=== PATIENT | male | born 1945 | race Caucasian/White ===

== ENCOUNTER 2017-10-16 13:42 | Inpatient (IN) | payer OTHER, MEDICARE ==
[~2017-10-16] VITALS: Ht 167.6 cm; Wt 97.4 kg
[2017-10-16 14:32] LABS: APPEARANCE CLEAR ((CLEAR)); BILIRUBIN NEGATIVE; BLOOD NEGATIVE; COLOR YELLOW ((YELLOW)); GLUCOSE (STRIP) NEGATIVE; KETONES NEGATIVE; LEUKOCYTES NEGATIVE; NITRITE NEGATIVE; PROTEIN (STRIP) NEGATIVE; SPECIFIC GRAVITY 1.017 (1.000-1.030); UCUL ADDED? NO; UROBILINOGEN 0.2 MG/DL (0.2-1.0)
[2017-10-16 14:50] LABS: HEMATOCRIT 35.9 % (38.0-50.0); HEMOGLOBIN 12.2 G/DL (12.5-16.6); MCH 28.1 PG (29.0-34.0); MCV 82.7 FL (86-99); PLATELET COUNT 221 K/uL (156-360); RBC DIS.WIDTH-CV 14.5 % (11.8-14.6); RBC DIS.WIDTH-SD 43.5 % (39-53); RED BLOOD COUNT 4.34 M/uL (4.00-5.50); WHITE BLOOD COUNT 7.2 K/uL (4.1-10.2)
[2017-10-16 15:37] LABS: CHLORIDE 103 MEQ/L (99-109); POTASSIUM 4.9 MEQ/L (3.7-5.4); SODIUM 134 MEQ/L (136-147)
[2017-10-16 15:43] LABS: CREATININE 2.9 MG/DL (0.6-1.3); GFR ESTIMATE (CALCULATED) 23 mL/min/ (58.99-99999); GLUCOSE 106 mg/dL (70-99); UREA NITROGEN (BUN) 60 mg/dL (9-23)
[2017-10-16] MEDS ORDERED: LO-DOSE ASPIRIN81 M1 PO (20:53)
[2017-10-16] MEDS ORDERED: MOVE FREE JOIN1 EACH PO (20:53)
[2017-10-16] MEDS ORDERED: MOVE FREE ULTR1 EAC1 PO (20:53)
[2017-10-16] MEDS ORDERED: ZESTORETIC 20-1 EAC2 PO (20:53)
[2017-10-16] MEDS ORDERED: ALEVE220 MG PO (20:54)
[2017-10-16 23:36] VITALS: BP 118/62
[2017-10-17 03:31] VITALS: BP 113/66
[2017-10-17 06:14] LABS: BASOPHIL (%) 0.6 % (0-1); EOSINOPHIL (%) 3.5 % (0-5); EOSINOPHIL COUNT 0.2 K/uL (0-0.3); HEMATOCRIT 37.1 % (38.0-50.0); HEMOGLOBIN 12.1 G/DL (12.5-16.6); IMMATURE GRANULOCYTE (%) 0.6 % (0.0-0.7); LYMPHOCYTE (%) 19.8 % (15-42); LYMPHOCYTE COUNT 1.3 K/uL (1.0-2.8); MCH 27.8 PG (29.0-34.0); MCHC 32.6 G/DL (30.0-36.0); MCV 85.3 FL (86-99); MONOCYTE (%) 8.4 % (3-12); MONOCYTE COUNT 0.6 K/uL (0-0.8); NEUTROPHIL (%) 67.1 % (45-76); NEUTROPHIL COUNT 4.4 K/uL (1.8-6.4); PLATELET COUNT 227 K/uL (156-360); RBC DIS.WIDTH-CV 14.7 % (11.8-14.6); RBC DIS.WIDTH-SD 46.1 % (39-53); RED BLOOD COUNT 4.35 M/uL (4.00-5.50); WHITE BLOOD COUNT 6.6 K/uL (4.1-10.2)
[2017-10-17 06:40] LABS: CHLORIDE 105 MEQ/L (99-109); CREATININE 3.1 MG/DL (0.6-1.3); GFR ESTIMATE (CALCULATED) 21 mL/min/ (58.99-99999); GLUCOSE 126 mg/dL (70-99); POTASSIUM 4.8 MEQ/L (3.7-5.4); SODIUM 137 MEQ/L (136-147); UREA NITROGEN (BUN) 57 mg/dL (9-23)
[2017-10-17 07:00] VITALS: BP 135/80
[2017-10-17 11:00] VITALS: BP 139/72
[2017-10-17 18:55] VITALS: BP 143/64
[2017-10-17 23:04] VITALS: BP 126/69
[2017-10-18 03:45] VITALS: BP 116/57
[2017-10-18 06:07] LABS: HEMATOCRIT 38.5 % (38.0-50.0); HEMOGLOBIN 12.5 G/DL (12.5-16.6); MCH 27.7 PG (29.0-34.0); MCHC 32.5 G/DL (30.0-36.0); MCV 85.4 FL (86-99); PLATELET COUNT 234 K/uL (156-360); RBC DIS.WIDTH-CV 14.6 % (11.8-14.6); RBC DIS.WIDTH-SD 45.8 % (39-53); RED BLOOD COUNT 4.51 M/uL (4.00-5.50); WHITE BLOOD COUNT 9.6 K/uL (4.1-10.2)
[2017-10-18 06:34] LABS: ALBUMIN 3.4 G/DL (3.2-4.8); CHLORIDE 106 MEQ/L (99-109); CHLORIDE 107 MEQ/L (99-109); GFR ESTIMATE (CALCULATED) 26 mL/min/ (58.99-99999); GLUCOSE 114 mg/dL (70-99); PHOSPHORUS 4.4 mg/dL (2.5-4.9); POTASSIUM 5.5 MEQ/L (3.7-5.4); SODIUM 137 MEQ/L (136-147); SODIUM 138 MEQ/L (136-147); UREA NITROGEN (BUN) 44 mg/dL (9-23); UREA NITROGEN (BUN) 45 mg/dL (9-23); URIC ACID 9.3 mg/dL (3.1-9.2)
[2017-10-18 06:41] LABS: CREATININE 2.6 MG/DL (0.6-1.3)
[2017-10-18 06:42] LABS: CREATININE 2.6 MG/DL (0.6-1.3)
[2017-10-18 07:40] VITALS: BP 118/63
[2017-10-18 16:40] VITALS: BP 129/66
[2017-10-18 19:02] VITALS: BP 139/66
[2017-10-18 20:47] LABS: C DIFF TOXIN NEGATIVE (NEGATIVE)
[2017-10-18 23:01] VITALS: BP 132/66
[2017-10-19 05:33] LABS: HEMOGLOBIN 11.7 G/DL (12.5-16.6); MCH 27.5 PG (29.0-34.0); MCHC 32.5 G/DL (30.0-36.0); MCV 84.7 FL (86-99); PLATELET COUNT 226 K/uL (156-360); RBC DIS.WIDTH-CV 14.7 % (11.8-14.6); RBC DIS.WIDTH-SD 45.3 % (39-53); RED BLOOD COUNT 4.25 M/uL (4.00-5.50)
[2017-10-19 06:07] LABS: ALBUMIN 3.5 G/DL (3.2-4.8); CHLORIDE 105 MEQ/L (99-109); GFR ESTIMATE (CALCULATED) 33 mL/min/ (58.99-99999); GLUCOSE 107 mg/dL (70-99); PHOSPHORUS 3.8 mg/dL (2.5-4.9); POTASSIUM 4.7 MEQ/L (3.7-5.4); SODIUM 139 MEQ/L (136-147); UREA NITROGEN (BUN) 35 mg/dL (9-23)
[2017-10-19 06:12] LABS: CREATININE 2.1 MG/DL (0.6-1.3)
[2017-10-19 06:55] VITALS: BP 131/75
[2017-10-19] MEDS ORDERED: FINASTERIDE5 MG PO (10:48)
[2017-10-19] MEDS ORDERED: TAMSULOSIN HCL0.4 MG PO (10:48)
== END 2017-10-19 14:03 | disposition home or self-care (01) | DRG 694 ==
LOC: EME 13:42 → EDOF 22:55 → 5EAST 22:55 → ENRESERV 23:10 → 5EAST 23:40
PROVIDERS: Hospitalist; Internal Medicine; Internal Medicine Nephrology; Physician Assistant
DX: N13.2 Hydronephrosis with renal and ureteral calculous obstruction (principal); N17.9 Acute kidney failure, unspecified; E87.1 Hypo-osmolality and hyponatremia; E87.5 Hyperkalemia; N40.1 Benign prostatic hyperplasia with lower urinary tract symptoms; N13.8 Other obstructive and reflux uropathy; N21.0 Calculus in bladder; I12.9 Hypertensive chronic kidney disease with stage 1 through stage 4 chronic kidney disease, or unspecified chronic kidney disease; N18.4 Chronic kidney disease, stage 4 (severe); D50.9 Iron deficiency anemia, unspecified; K80.20 Calculus of gallbladder without cholecystitis without obstruction; N32.89 Other specified disorders of bladder; E78.5 Hyperlipidemia, unspecified; E66.9 Obesity, unspecified; Z68.34 Body mass index [BMI] 34.0-34.9, adult
CPT/HCPCS: 74176; 74420; 80048; 80069; 81003; 82306; 84550; 85025; 85027; 87493; 99281; 99285; C1769; C2625; J0330; J0696; J1170; J1644; J2405; J3010; J7030; J7120